=== PATIENT | male | born 1970 | race Caucasian/White ===

== ENCOUNTER 2021-03-20 14:17 | Emergency (ER) | payer MEDICARE ==
[~2021-03-20] VITALS: Ht 170.2 cm; Wt 98.1 kg
[~2021-03-20 14:17] MED LIST: ALPR0.254 PO; BACL10TA PO; BENZ0.5T32 PO; GABA-585 PO; IBUP25PO MC; LAMO5TB.5 PO; LEVO175T5 PO; LISI2.5T PO; LOVA20TA2 PO; MELA3TAB4 PO; OMEG300C PO; OMEP20TA63 PO; VITA113. TP
[2021-03-20] MEDS ORDERED: IV NORMAL SALINE 1000ML BAG 1,000 ML IV ONE (14:45)
[2021-03-20] MEDS ORDERED: PIPERACILLIN/TAZOBACTAM 3.375 GM in IV NORMAL SALINE 50ML 50 ML IV ONE (14:45)
[2021-03-20] MEDS ORDERED: VANCOMYCIN PER PHARMACY MC PRN (14:45)
[2021-03-20] MEDS ORDERED: CONTRAST GIVEN. MC PRN (14:45)
[2021-03-20] MEDS ORDERED: IOHEXOL 300 MG/ML 100ML VIAL. IV ONE (14:45)
[2021-03-20 14:50] LABS: BASO % 0 % (0-3); EOS % 0 % (0-3); HEMATOCRIT 31.7 % (39.0-53.0); HEMOGLOBIN 10.4 g/dL (13.0-17.5); LYMPH # 2.1 x10^3/uL (1.0-4.8); LYMPH % 8 % (24-48); MEAN CORPUSCULAR HEMOGLOBIN 31 pg (25-35); MEAN CORPUSCULAR HGB CONC 33 g/dL (31-37); MEAN CORPUSCULAR VOLUME 94 fL (79-100); MONO # 1.9 x10^3/uL (0.0-1.1); MONO % 7 % (0-9); NEUT # 22.1 x10^3/uL (1.8-7.7); NEUT % 85 % (31-73); PLATELET COUNT 377 x10^3/uL (140-400); RED BLOOD COUNT 3.38 x10^6/uL (4.30-5.70); RED CELL DISTRIBUTION WIDTH 14.9 % (11.5-14.5); WHITE BLOOD COUNT 26.1 x10^3/uL (4.0-11.0)
--- NOTE | 2021-03-20 14:56 | RAD ---
EXAM: Chest, single view. HISTORY: Altered mental status. COMPARISON: None. FINDINGS: A frontal view of the chest obtained. There is no infiltrate, pleural effusion or pneumotho rax. The heart is normal in size. IMPRESSION: No acute pulmonary finding. Electronically signed by: Ekta Lindsay MD (03/20/2021 2:54 PM) [id number]
[2021-03-20 15:01] LABS: CALCIUM 9.7 mg/dL (8.5-10.1); CREATININE 3.1 mg/dL (0.7-1.3); GFR 21.3; POTASSIUM 5.5 mmol/L (3.5-5.1)
[2021-03-20 15:10] LABS: % LYMPHS 5 % (24-48); % MONOS 2 % (0-10); % SEGS 93 % (35-66)
[2021-03-20 15:11] LABS: PLT ESTIMATE ADEQUATE (ADEQUATE)
[2021-03-20 15:16] LABS: ALBUMIN 2.7 g/dL (3.4-5.0); ALBUMIN/GLOBULIN RATIO 0.8 (1.0-1.7); TOTAL BILIRUBIN 0.2 mg/dL (0.2-1.0)
--- NOTE | 2021-03-20 15:28 | RAD ---
EXAM: Bilateral lower extremity venous Doppler sonogram. HISTORY: Pain and swelling. TECHNIQUE: Cerda scale and color Doppler sonographic evaluation of the bilateral lower extremity veins with spectral waveform analysis was performed. FINDINGS: There is normal color flow, normal compressibility and there are normal spectral waveforms in the common femoral, superficial femoral, popliteal, posterior tibial and greater saphenous veins. IMPRESSION: No Doppler evidence of lower extremity deep venous thrombosis. Electronically signed by: Ekta Lindsay MD (03/20/2021 3:25 PM) [id number]
--- NOTE | 2021-03-20 15:33 | RAD ---
EXAM: Bilateral lower extreme the arterial Doppler sonogram. HISTORY: Painful cold legs. No pedal pulses. TECHNIQUE: Cerda scale and color Doppler sonographic imaging of the lower 70 arteries with spectral an alysis was performed. COMPARISON: None. FINDINGS: There is a diminished monophasic waveform within the right deep femoral artery with a peak systolic velocity of 50 cm/s. The remainder of the right lower extremity arteries are occluded. There are diminished monophasic waveforms and decreased peak systolic velocities within the left comm on femoral, deep femoral, proximal superficial femoral and anterior tibial arteries, consistent with hemodynamically significant proximal stenosis. The left mid and distal superficial femoral, popliteal , posterior tibial, peroneal and dorsalis pedis arteries are occluded. IMPRESSION: 1. Occlusion of the right lower extremity arteries, with exception of diminished flow within the righ t deep femoral artery. 2. Occlusion of the left mid and superficial femoral, popliteal, posterior tibial, peroneal and dorsa lis pedis arteries, and diminished flow within the left common femoral, deep femoral, proximal superf icial femoral and anterior tibial arteries Dr. Miriam Ferreira was notified of these findings at 1500 hours on 03/20/2021. Electronically signed by: Ekta Lindsay MD (03/20/2021 3:30 PM) [id number]
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
--- NOTE | 2021-03-20 15:52 | RAD ---
EXAM: Head CT without contrast. HISTORY: Altered mental status. TECHNIQUE: Computed tomographic images of the head were obtained without contrast. *One or more of the following individualized dose reduction techniques were utilized for this examina tion: 1. Automated exposure control. 2. Adjustment of the mA and/or kV according to patient size. 3. Use of iterative reconstruction technique. COMPARISON: None. FINDINGS: There is hyperdensity within the extra-axial space along the left cerebral convexity at the vertex due to motion and bone artifact. No convincing hemorrhage is seen. There is no mass effect or midline shift. There is no hydrocephalus. The sánchez-white matter differentiation pattern is intact. T he orbits and paranasal sinuses mastoid air cells are unremarkable. There is no suspicious calvarial lesion. IMPRESSION: No acute intracranial finding. Note is made that MRI is more sensitive for acute infarcti on. Electronically signed by: Ekta Lindsay MD (03/20/2021 3:49 PM) [id number]
[2021-03-20] MEDS ORDERED: IOHEXOL 350 MG/ML 100 ML VIAL. IV ONE (16:00)
[2021-03-20] MEDS ORDERED: VANCOMYCIN 2 GM in IV NORMAL SALINE 500ML BAG 500 ML IV ONE (16:00)
[2021-03-20 16:41] LABS: PROTHROMBIN TIME PATIENT 15.6 SEC (11.7-14.0)
[2021-03-20] MEDS ORDERED: HEPARIN for IV BOLUS 10,000 UNIT/10 ML VIAL. IV PRN ×2 (16:45)
[2021-03-20] MEDS ORDERED: HEPARIN 25,000UTS/250ML PREMIX 250 ML IV PRN (16:45)
--- NOTE | 2021-03-20 16:53 | RAD ---
CT chest before and after contrast, CT abdomen pelvis before and after contrast. HISTORY: Altered mental status, back pain, evaluate for dissection. CT of the chest was done before and after 75 mL Isovue-370 contrast. Three-dimensional images were re constructed. Precontrast images show no evidence of an aortic aneurysm or intramural hematoma. There is dependent atelectasis bilaterally in the lungs. Postcontrast images show no mediastinal adenopathy. There is no thoracic aortic aneurysm or dissectio n. Origins the great vessels at the aortic arch are patent. There are old posterior left rib fracture s. There is an old mild fracture at T12. There are a few small Schmorl's nodes. There is no acute tho racic fracture. IMPRESSION: 1. Negative for aortic aneurysm or dissection. 2. Mild atelectasis without other infiltrates. 3. Mild old fracture T12. End impression CT abdomen pelvis CT abdomen pelvis was done before and after contrast. There is atrophy of the right kidney. There is increased stool in colon. There is no bowel obstruction. There is a fecal impaction at the rectum. A liver lesion is not identified. The gallbladder is distended without calcified gallstone or gallbladd er wall thickening. There is absence of the spleen. Pancreas is unremarkable. There is no left renal mass or hydronephrosis. There is no bowel obstruction. There is no abdominal aortic aneurysm or dissection. Celiac and superior mesenteric arteries are prado nt. There is an accessory renal artery to the right kidney which is patent. The main right renal bradly ry is occluded. Left renal artery is patent as is an accessory renal artery on the left. There is a p atent inferior mesenteric artery with moderate to severe stenosis at its origin. There is extensive p laque in the distal abdominal aorta with moderate to severe stenosis at the aortic distal aorta and o rigins of the iliac arteries. There is complete occlusion of the distal common iliac artery on the ri ght. There is mild to moderate plaque at the left common iliac artery. Left external iliac artery is mild plaque but is patent. There is moderate plaque at the left femoral artery. There is reconstituti on of branches of the deep femoral artery on the right from collaterals. Fecal impaction at the rectu m. IMPRESSION: 1. Marked plaque with moderate to severe stenosis distal abdominal aorta. 2. 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 3. Reconstitution of the femoral vessels in the right thigh. 4. Mild plaque in the left common and external iliac arteries. 6. Increased stool in colon with fecal impaction at the rectum. 7. No small bowel obstruction. 8. Occlusion right renal artery with marked atrophy of the right kidney, there is a patent upper pole accessory renal artery on the right. PQRS Compliance Statement: One or more of the following individualized dose reduction techniques were utilized for this examinat ion: 1. Automated exposure control 2. Adjustment of the mA and/or kV according to patient size 3. Use of iterative reconstruction technique Electronically signed by: Babak Hennessy MD (03/20/2021 4:51 PM) [facility]
[2021-03-20] MEDS ORDERED: HEPARIN for IV BOLUS 10,000 UNIT/10 ML VIAL. IV ONE (17:00)
--- NOTE | 2021-03-20 17:06 | EKG ---
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
[2021-03-20 17:15] VITALS: BP 100/55
== END 2021-03-20 17:30 | disposition short-term general hospital (02) ==
LOC: ER 14:17
DX: A41.9 Sepsis, unspecified organism (principal); I35.0 Nonrheumatic aortic (valve) stenosis; N28.0 Ischemia and infarction of kidney; I12.9 Hypertensive chronic kidney disease with stage 1 through stage 4 chronic kidney disease, or unspecified chronic kidney disease; N18.9 Chronic kidney disease, unspecified; N17.9 Acute kidney failure, unspecified; M79.661 Pain in right lower leg; Z90.89 Acquired absence of other organs; G80.9 Cerebral palsy, unspecified; Z86.718 Personal history of other venous thrombosis and embolism
CPT/HCPCS: 36415; 70450; 71045; 71275; 74174; 80053; 83605; 84484; 85007; 85025; 85610; 85730; 86850; 86900; 86901; 87040; 87205; 93005; 93925; 93970; 96361; 96365; 96366; 96367; 96368; 96375; 99291; J1644; J2543; J3370; J7030; J7040; Q9967